=== PATIENT | female | born 1980 | race Asian ===

== ENCOUNTER → 2017-01-08 | Outpatient (CLI) | payer OTHER ==
[~2017-01-08] MED LIST: CLB/200 PO; CLB100 PO; SUMA50TA15 PO; VENL75CA73 PO
== END | disposition home or self-care (01) ==
LOC: C.PAPS 18:02
PROVIDERS: ATTEND Physician Assistant Medical
DX: Z12.4 Encounter for screening for malignant neoplasm of cervix (principal)

== ENCOUNTER 2017-03-29 13:31 | Emergency (ER) | payer OTHER ==
[~2017-03-29] VITALS: Ht 152.4 cm; Wt 55.4 kg
[~2017-03-29 13:31] MED LIST changes: -CLB100 PO
[2017-03-29 13:33] VITALS: TEMP 36.9; Ht 152.4 cm; Wt 55.4 kg
--- NOTE | 2017-03-29 13:59 | EMERGENCY ROOM VISIT NOTE ---
History First contact with patient: 13:40 Chief Complaint: ABDOMINAL PAIN Stated Complaint: ABD. PAIN-LOWER RIGHT History of Present Illness The patient is a 36 year old female who presents to the Emergency Room with complaints of right lower quadrant abdominal pain that started 2 days ago. She describes it as a "cramping and twitching" sensation that has intensified over the last 2 days. She also complains of nausea. The patient suffers from chronic migraines. She is unsure if her nausea is related to a migraine that she has been fighting for the last day. She denies any fever or chills. She has had mild loose stools. She denies any blood in her stool. She denies any urinary symptoms. Review of Systems 10 system review performed and negative unless noted in HPI or below Past Medical/Surgical History Status post 2 Social History Smoking Status: Never Smoker Marital Status: Occupation Status: employed Current/Historical Medications Scheduled Sumatriptan Succinate (Imitrex), 50 MG PO PRN Venlafaxine Hcl (Venlafaxine Extended Rel), 1 CAP PO DAILY Scheduled PRN Celecoxib (CeleBREX), 1 CAP PO DAILY PRN for prn Allergies Coded Allergies: Acetaminophen (Unverified Allergy, Intermediate, rash, 03/29/17) Amitriptyline (Unverified Allergy, Intermediate, swelling, 03/29/17) Physical Exam Vital Signs Date Time Temp Pulse Resp B/P (MAP) Pulse Ox O2 Delivery O2 Flow Rate FiO2 03/29/17 19:10 82 15 110/87 100 03/29/17 17:21 87 14 122/82 100 Room Air 03/29/17 16:53 90 16 111/74 100 Room Air 03/29/17 14:55 78 14 136/79 100 Room Air 03/29/17 13:33 36.9 94 20 112/75 100 Room Air Physical Exam VITALS: Vitals are noted on the nurse's note and reviewed by myself. Vital signs stable. GENERAL: A 36-year-old female, in no acute distress, nondiaphoretic, well- developed well-nourished. SKIN: The skin was without rashes, erythema, edema, or bruising. HEAD: Normocephalic atraumatic. MOUTH: Mucous membranes moist. NECK: Supple without nuchal rigidity. HEART: Regular rate and rhythm without murmurs gallops or rubs. LUNGS: Clear to auscultation bilaterally without wheezes, rales or rhonchi. No accessory muscle use. ABDOMEN: Positive bowel sounds x 4.Soft, tenderness to palpation in the right lower quadrant and suprapubic region. Without organomegaly. No guarding or rebound tenderness. MUSCULOSKELETAL: No muscle atrophy, erythema, Strength 5/5 throughout. NEURO: Patient was alert and oriented to person place and time. Normal sensation to touch. No focal neurological deficits. Medical Decision & Procedures ER Provider Diagnostic Interpretation: Patient Name: PAT DE LA CRUZ Unit Number: [id number] Dictated: 03/29/171729 Transcribed: 03/29/171729 PBS Printed Date/Time: [~ rep prt dt]/[~ rep prt tm] [~ rep ct labl] - [~ rep ct ivnm] [facility] [place] [address] Dictated: 03/29/171729 Transcribed: 03/29/171729 PBS Printed Date/Time: [~ rep prt dt]/[~ rep prt tm] [~ rep ct labl] - [~ rep ct ivnm] ABD/PELVIS IV AND ORAL CONT CLINICAL HISTORY: 36 years-old Female presenting with RLQ abd pain and nausea. TECHNIQUE: Multidetector CT of the abdomen and pelvis was performed after the administration of oral and intravenous contrast. IV contrast: 118 mL of Optiray 320. A dose lowering technique was used consistent with the principles of ALARA (as low as reasonably achievable). COMPARISON: None. CT DOSE (mGy.cm): The estimated cumulative dose is 250.03 mGy.cm. FINDINGS: [employer] topogram: Unremarkable. Lung bases: Minimal dependent changes likely atelectasis. Normal heart size. No pericardial or pleural effusion. Liver: Normal morphology. 10 mm hypodensity in the right hepatic lobe near the dome with suggestion of nodular peripheral enhancement. This is indeterminate but suggestive of a benign hemangioma. Patent hepatic vasculature. Biliary: No intrahepatic or extrahepatic biliary ductal dilatation. Normal gallbladder. Pancreas: Normal. Spleen: Normal. Adrenal glands: Normal. Kidneys and ureters: Normal. No hydronephrosis. Bladder: Mild circumferential bladder wall thickening allowing for under distention. Pelvic organs: Normal uterus. Ovaries contain follicles bilaterally, the largest measuring 2.5 cm on the left. Mild prominence of the bilateral gonadal veins. Bowel: Normal appendix. No bowel obstruction. Peritoneal cavity: No free fluid or intraperitoneal gas. Vasculature: Aorta and IVC patent and normal in caliber. Lymph nodes: No enlarged lymph nodes in the abdomen or pelvis. Abdominal wall: Normal. Musculoskeletal: Normal. IMPRESSION: 1. No appendicitis. 2. Mild bladder wall thickening could suggest cystitis. Correlate with urinalysis. Electronically signed by: Giovanni Blackman M.D. 03/29/2017 5:36 PM Dictated Date/Time: 03/29/2017 5:30 PM The status of this report is Signed. Draft = Not yet reviewed or approved by Radiologist. Signed = Reviewed and approved by Radiologist. <AttendingPhy></AttendingPhy> <FamilyPhy>No Doctor, Assigned</FamilyPhy> < PrimaryPhy>No Doctor, Assigned</PrimaryPhy> <UnitNumber>[id number]</UnitNumber> <VisitNumber>[id number]</VisitNumber> <PatientName>PAT DE LA CRUZ</PatientName> < DateOfBirth>1980</DateOfBirth> <Location>[facility]</Location> <ServiceDate></ServiceDate> <MNE>ESINDI</MNE> <OrderingPhy>Erin Todd PA-C</ OrderingPhy> <OrderingPhyMNE>f rep ord dr ndiaye</OrderingPhyMNE> <DictatingPhyMNE> f rep dict dr ndiaye</DictatingPhyMNE> <CCListMNE>f rep ct zelda</CCListMNE> < AdmittingPhyMNE>f pt admit dr ndiaye</AdmittingPhyMNE> <AttendingPhyMNE>f pt attend dr ndiaye</AttendingPhyMNE> <ConsultingPhyMNE>f pt consult dr ndiaye</ConsultingPhyMNE> <FamilyPhyMNE>f pt fam dr ndiaye</FamilyPhyMNE> <OtherPhyMNE>f pt other dr ndiaye</OtherPhyMNE> < PrimaryPhyMNE>f pt prim care dr ndiaye</PrimaryPhyMNE> <ReferringPhyMNE>f pt referring dr ndiaye</ReferringPhyMNE> Laboratory Results 03/29/17 14:02 Red Blood Count 4.86, Mean Corpuscular Volume 76.7, Mean Corpuscular Hemoglobin 25.3, Mean Corpuscular Hemoglobin Concent 33.0, Mean Platelet Volume 9.0, Neutrophils (%) (Auto) 55.4, Lymphocytes (%) (Auto) 35.6, Monocytes (%) (Auto) 6.2, Eosinophils (%) (Auto) 2.3, Basophils (%) (Auto) 0.4, Neutrophils # (Auto) 4.55, Lymphocytes # (Auto) 2.92, Monocytes # (Auto) 0.51, Eosinophils # (Auto) 0.19, Basophils # (Auto) 0.03 03/29/17 14:02 Test 03/29/17 14:02 03/29/17 14:10 White Blood Count 8.21 K/uL (4.8-10.8) Red Blood Count 4.86 M/uL (4.2-5.4) Hemoglobin 12.3 g/dL (12.0-16.0) Hematocrit 37.3 % (37-47) Mean Corpuscular Volume 76.7 fL (80-100) Mean Corpuscular Hemoglobin 25.3 pg (25-34) Mean Corpuscular Hemoglobin Concent 33.0 g/dl (32-36) Platelet Count 338 K/uL (130-400) Mean Platelet Volume 9.0 fL (7.4-10.4) Neutrophils (%) (Auto) 55.4 % Lymphocytes (%) (Auto) 35.6 % Monocytes (%) (Auto) 6.2 % Eosinophils (%) (Auto) 2.3 % Basophils (%) (Auto) 0.4 % Neutrophils # (Auto) 4.55 K/uL (1.4-6.5) Lymphocytes # (Auto) 2.92 K/uL (1.2-3.4) Monocytes # (Auto) 0.51 K/uL (0.11-0.59) Eosinophils # (Auto) 0.19 K/uL (0-0.5) Basophils # (Auto) 0.03 K/uL (0-0.2) RDW Standard Deviation 43.8 fL (36.4-46.3) RDW Coefficient of Variation 15.5 % (11.5-14.5) Immature Granulocyte % (Auto) 0.1 % Immature Granulocyte # (Auto) 0.01 K/uL (0.00-0.02) Anion Gap 9.0 mmol/L (3-11) Est Creatinine Clear Calc Drug Dose 103.7 ml/min Estimated GFR () 136.5 Estimated GFR (Non- 117.8 BUN/Creatinine Ratio 21.7 (10-20) Calcium Level 9.9 mg/dl (8.5-10.1) Total Bilirubin 0.2 mg/dl (0.2-1) Aspartate Amino Transf (AST/SGOT) 26 U/L (15-37) Alanine Aminotransferase (ALT/SGPT) 27 U/L (12-78) Alkaline Phosphatase 82 U/L (45-117) Total Protein 7.7 gm/dl (6.4-8.2) Albumin 3.6 gm/dl (3.4-5.0) Globulin 4.1 gm/dl (2.5-4.0) Albumin/Globulin Ratio 0.9 (0.9-2) Lipase 269 U/L (73-393) Chemistry Specimen Hemolysis Urine Color YELLOW Urine Appearance TURBID (CLEAR) Urine pH 7.0 (4.5-7.5) Urine Specific [place] 1.020 (1.000-1.030) Urine Protein NEG (NEG) Urine Glucose (UA) NEG (NEG) Urine Ketones NEG (NEG) Urine Occult Blood TRACE (NEG) Urine Nitrite NEG (NEG) Urine Bilirubin NEG (NEG) Urine Urobilinogen NEG (NEG) Urine Leukocyte Esterase NEG (NEG) Urine WBC (Auto) 1-5 /hpf (0-5) Urine RBC (Auto) 0-4 /hpf (0-4) Urine Hyaline Casts (Auto) 0 /lpf (0-5) Urine Epithelial Cells (Auto) >30 /lpf (0-5) Urine Bacteria (Auto) NEG (NEG) Urine Test NEG (NEG) Medications Administered Medications (Trade) Dose Ordered Sig/Aidan Route Start Time Stop Time Status Last Admin Dose Admin Sodium Chloride 1,000 ml @ 999 mls/hr Q1H1M ONCE IV 03/29/17 14:00 03/29/17 15:00 DC 03/29/17 14:15 999 MLS/HR Ondansetron HCl (Zofran Inj) 4 mg Q2H PRN IV 03/29/17 14:00 03/29/17 20:31 DC 03/29/17 14:16 4 MG ED Course Patient was seen and examined Vital signs including blood pressure were reviewed medications list was verified with patient Labs were obtained, and a saline lock was established The patient declined pain medication. She was given Zofran 4 mg IV. She was hydrated with 1 L of normal saline. Imaging was performed and reviewed The patient was reassessed and resting comfortably. We discussed the results of her workup. She voiced understanding. I reviewed discharge instructions the patient. They voiced understanding and had no further questions. Medical Decision DIFFERENTIAL DIAGNOSIS: Ovarian cyst, kidney stone, Gastroenteritis, Hepatitis, cholecystitis, cholangitis, biliary colic, pancreatitis, appendicitis, inguinal hernia, nephrolithiasis, inflammatory bowel disease, mesenteric adenitis, peptic ulcer disease, GERD, gastritis, pancreatitis,, bowel obstruction, splenic infarct, diverticulitis, mesenteric ischemia, metabolic, peritonitis, among others. This patient is a 36-year-old female that presents emergency department with right lower quadrant abdominal pain for 2 days and nausea. She was tender in the right lower quadrant. There was concern for possible appendicitis. Her labs are unremarkable. No appendicitis was noted on the CT. She did not require any pain medication while in the emergency department. There was questionable thickening of the bladder wall. Her urinalysis does not appear to be infected. There was a urine culture sent. The etiology of her pain is unclear, but I believe she is stable to be discharged home. She was advised to have a follow-up appointment with her primary care physician for a recheck. She agrees to return to the emergency department with any new or persistent symptoms. Impression Primary Impression: Abdominal pain Departure Information Dispostion Home / Self-Care Condition FAIR Referrals No Doctor, Assigned (PCP) Patient Instructions Abdominal Pain, My [facility] Additional Instructions You were evaluated in the emergency department for abdominal pain. A CAT scan was performed and did not show any signs of appendicitis. Please take a stool softener such as Colace (docusate) twice daily for 3 days Please also take one dose of MiraLAX daily for 3 days Please follow-up with your primary care physician to be rechecked in the next 2- 3 days Please take Tylenol 500 mg 1 tab every 6 hours as needed for pain Return to the emergency department if you have any of the following symptoms: -Fever of 102F or greater -Persistent vomiting - Persistent diarrhea -Lethargy -Chest pain -Shortness of breath -Worsening abdominal pain
[2017-03-29] MEDS ORDERED: ONDANSETRON INJ 2 MG/ML 2 ML VIAL IV PRN (14:00)
[2017-03-29] MEDS ORDERED: SODIUM CHLORIDE 0.9% 1000ML 1,000 ML IV ONE (14:00)
[2017-03-29] MEDS ORDERED: OPTIRAY 320 IV PRN (14:30)
[2017-03-29 14:37] LABS: URINE APPEARANCE TURBID (CLEAR); URINE BILIRUBIN NEG (NEG); URINE COLOR YELLOW; URINE EPITHELIAL CELL AUTO >30 /lpf (0-5); URINE NITRITE NEG (NEG); UROBILINOGEN NEG (NEG)
[2017-03-29 14:39] LABS: MANUAL MICROSCOPIC REQUIRED? NO; REVIEW REQ? NO
[2017-03-29 14:40] LABS: ALB/GLOB RATIO 0.9 (0.9-2); BUN/CREATININE RATIO 21.7 (10-20); CALCIUM 9.9 mg/dl (8.5-10.1); CREATININE 0.58 mg/dl (0.60-1.20)
[2017-03-29 14:48] LABS: BASO % 0.4 %; BASO ABS # 0.03 K/uL (0-0.2); COMPLETE YES; EOS % 2.3 %; HEMATOCRIT 37.3 % (37-47); IG% 0.1 %; LYMPH % 35.6 %; LYMPH ABS # 2.92 K/uL (1.2-3.4); MEAN CELL VOLUME 76.7 fL (80-100); MEAN CORPUSCULAR HEMOGLOBIN 25.3 pg (25-34); MONO % 6.2 %; NEUT % 55.4 %; PLATELET COUNT 338 K/uL (130-400); RED BLOOD COUNT 4.86 M/uL (4.2-5.4); WHITE BLOOD COUNT 8.21 K/uL (4.8-10.8)
[2017-03-29 14:52] LABS: POTASSIUM 3.9 mmol/L (3.5-5.1)
--- NOTE | 2017-03-29 17:38 | DIAGNOSTIC IMAGING REPORT ---
ABD/PELVIS IV AND ORAL CONT CLINICAL HISTORY: 36 years-old Female presenting with RLQ abd pain and nausea. TECHNIQUE: Multidetector CT of the abdomen and pelvis was performed after the administration of oral and intravenous contrast. IV contrast: 118 mL of Optiray 320. A dose lowering technique was used consistent with the principles of ALARA (as low as reasonably achievable). COMPARISON: None. CT DOSE (mGy.cm): The estimated cumulative dose is 250.03 mGy.cm. FINDINGS: [employer] topogram: Unremarkable. Lung bases: Minimal dependent changes likely atelectasis. Normal heart size. No pericardial or pleural effusion. Liver: Normal morphology. 10 mm hypodensity in the right hepatic lobe near the dome with suggestion of nodular peripheral enhancement. This is indeterminate but suggestive of a benign hemangioma. Patent hepatic vasculature. Biliary: No intrahepatic or extrahepatic biliary ductal dilatation. Normal gallbladder. Pancreas: Normal. Spleen: Normal. Adrenal glands: Normal. Kidneys and ureters: Normal. No hydronephrosis. Bladder: Mild circumferential bladder wall thickening allowing for under distention. Pelvic organs: Normal uterus. Ovaries contain follicles bilaterally, the largest measuring 2.5 cm on the left. Mild prominence of the bilateral gonadal veins. Bowel: Normal appendix. No bowel obstruction. Peritoneal cavity: No free fluid or intraperitoneal gas. Vasculature: Aorta and IVC patent and normal in caliber. Lymph nodes: No enlarged lymph nodes in the abdomen or pelvis. Abdominal wall: Normal. Musculoskeletal: Normal. IMPRESSION: 1. No appendicitis. 2. Mild bladder wall thickening could suggest cystitis. Correlate with urinalysis. Electronically signed by: Giovanni Blackman M.D. 03/29/2017 5:36 PM Dictated Date/Time: 03/29/2017 5:30 PM
[2017-03-29] MEDS ORDERED: POLYETHYLENE (MIRALAX) 17 GM PACK PO STA (17:56)
[2017-03-29 19:10] VITALS: BP 110/87; PULSE 82; O2SAT 100
== END 2017-03-29 19:10 | disposition home or self-care (01) ==
LOC: C.EDB 13:35
DX: R10.31 Right lower quadrant pain (principal); Z79.899 Other long term (current) drug therapy